=== PATIENT | female | born 1970 | race Caucasian/White ===

== ENCOUNTER 2023-12-26 14:06 | Emergency (ER) | payer OTHER ==
[2023-12-26 16:04] LABS: Specific Gravity 1.012 (1.005-1.030); Urine Bilirubin NEGATIVE (Negative); Urine Blood Negative (Negative); Urine Clarity Clear (Clear); Urine Color Yellow (Yellow); Urine Glucose NEGATIVE (Negative); Urine Ketones NEGATIVE (Negative); Urine Microscopic Reflex YN NO UMIC; Urine Nitrite NEGATIVE (Negative); Urine Protein NEGATIVE (Negative); Urine Urobilinogen Normal (Normal); Urine pH 6.5 (5.0-7.0)
[2023-12-26 16:08] LABS: Absolute Eosinophils 0.1 K/uL (0-0.5); Absolute Lymphocytes (CBC) 2.2 K/uL (0.7-4.9); Absolute Monocytes 0.6 K/uL (0.1-1.3); Absolute Neutrophil 3.9 K/uL (1.8-8.0); Basophils % 0.6 % (0-1.3); Hematocrit 40.6 % (36.0-45.0); Hemoglobin 13.7 g/dL (12.0-15.0); Lymphocytes % 32.8 % (15.3-44.8); MCH 31.5 pg (27.0-35.0); MCHC 33.8 g/dL (32.0-36.0); MCV 93.1 fL (80-100); MPV 6.3 fL (7.6-11.3); Monocytes % 8.1 % (3.3-12.3); Neutrophils % 56.5 % (41.7-73.7); Nucleated Red Blood Cells % 0.1 % (0-0); Platelets 239 thou/uL (152-406); RBC Red Blood Cell Count 4.36 M/uL (3.86-4.86)
[2023-12-26 16:25] LABS: Albumin 4.1 g/dL (3.4-5.0); Albumin/Globulin Ratio 1.1 (1.1-1.8); Anion Gap 5.6 mEq/L (5.0-15.0); Bilirubin Total 0.4 mg/dL (0.2-1.0); Globulin 3.7 g/dL (2.3-3.5); Potassium 3.6 mEq/L (3.5-5.1); Protein, Total 7.8 g/dL (6.4-8.2)
--- NOTE | 2023-12-26 18:10 | RAD REPORT ---
EXAM DESCRIPTION: CT - Abdomen Pelvis W Contrast - 12/26/2023 5:29 pm CLINICAL HISTORY: ABD PAIN COMPARISON: No comparisons TECHNIQUE: Thin cut axial CT imaging of the abdomen and pelvis was performed following intravenous a dministration of iodinated contrast. Multiplanar reformats were generated and reviewed. All CT scans are performed using dose optimization technique as appropriate and may include automated exposure control or mA/KV adjustment according to patient size. FINDINGS: No suspicious findings in the lung bases. The liver demonstrates numerous subcentimeter well-circumscribed hypoattenuating lesions, suggestive of benign cysts, but not well characterized. Spleen, adrenal glands, and pancreas show no suspicious findings. Gallbladder and biliary tree are also without suspicious finding. Symmetric renal function is seen with no hydronephrosis or suspicious renal mass. No dilated bowel loops or bowel wall thickening. Appendix is unremarkable. No free air, free fluid or fluid collections. Nonspecific mild fat stranding along the mesenteric root. No hernia, mass or bulk y lymphadenopathy. Status post hysterectomy. Ovoid pelvic 2 cm calcified focus near the cough, sugges ting a small omental infarct. The urinary bladder is without significant finding. No suspicious bony findings. IMPRESSION: No acute intra-abdominal process. Incidental findings as above, including nonspecific mild fat stranding along the mesenteric root, cou ld be idiopathic, but may relate to a nonspecific infectious or inflammatory process in the abdomen.
--- NOTE | 2023-12-26 18:22 | EDPHYS ---
Physician Documentation [facility] Name: Maggie Bailey Age: 53 yrs Sex: Female : 1970 Arrival Date: 12/26/2023 Time: 14:06 Bed 17 Private MD: ED Physician Roman Allison HPI: 12/25 16:27 This 53 yrs old Female presents to ER via Ambulatory with complaints of Abdominal Pain. ms3 16:27 53-year-old female with past medical history of hyperlipidemia, umbilical hernia ms3 presents to the emergency department for left upper quadrant and left lower quadrant abdominal pain that has been ongoing for 3 weeks. Patient rates the pain a 2/10. Patient denies urinary symptoms, fevers, chills, nausea, vomiting, diarrhea.. Historical: - Allergies: 14:24 No Known Allergies; cm10 - Home Meds: 14:24 rosuvastatin oral [Active]; cm10 - PMHx: 14:24 Hypercholesterolemia; Umbilical hernia; cm10 - PSHx: 14:24 section; Total abdominal hysterectomy; cm10 - Immunization history:: Adult Immunizations up to date. - Infectious Disease History:: Denies. - Social history:: Smoking status: Patient denies any tobacco usage or history of. ROS: 16:27 Constitutional: Negative for fever, and chills. Cardiovascular: Negative for chest ms3 pain, and palpitations. Respiratory: Negative for shortness of breath, cough, wheezing, and pleuritic chest pain, 16:27 MS/Extremity: Negative for injury and deformity, Skin: Negative for injury, rash, and discoloration, 16:27 Abdomen/GI: Positive for abdominal pain, Exam: 16:27 Constitutional: This is a well developed, well nourished patient who is awake, alert, ms3 and in no acute distress. Head/Face: Normocephalic, atraumatic. Chest/axilla: Normal chest wall appearance and motion. Nontender with no deformity. Cardiovascular: Regular rate and rhythm with a normal S1 and S2. No gallops, murmurs, or rubs. Normal PMI, no JVD. No pulse deficits. Respiratory: Lungs have equal breath sounds bilaterally, clear to auscultation and percussion. No rales, rhonchi or wheezes noted. No increased work of breathing, no retractions or nasal flaring. 16:27 Abdomen/GI: Inspection: abdomen appears normal, Bowel sounds: normal, Palpation: mild abdominal tenderness, in the left upper quadrant and left lower quadrant, Vital Signs: 14:22 BP 129 / 75; Pulse 82; Resp 16; Temp 97.8; Pulse Ox 96% on R/A; Weight 90.72 kg; Height cm10 5 ft. 5 in. ; Pain 2/10; 19:07 BP 138 / 93; Pulse 63; Resp 17; Pulse Ox 100% ; jl7 14:22 Body Mass Index 33.28 (90.72 kg, 165.1 cm) cm10 14:22 Pain Scale: Adult cm10 MDM: 14:32 Patient medically screened. ms3 16:27 Differential diagnosis: bowel obstruction, diverticulitis, non-specific abd pain. ms3 17:53 Transition of care: After a detail discussion of the patient's case, care is ms3 transferred to Roman Allison MD. 12/25 14:33 Order name: CBC with Diff; Complete Time: 16:28 ms3 12/25 14:33 Order name: CMP; Complete Time: 16:28 ms3 12/25 14:33 Order name: Urinalysis w/ reflexes; Complete Time: 16:28 ms3 12/25 14:33 Order name: CT Abd/Pelvis - IV Contrast Only; Complete Time: 18:19 ms3 12/25 14:33 Order name: IV Saline Lock; Complete Time: 15:56 ms3 12/25 14:33 Order name: Labs collected and sent; Complete Time: 15:56 ms3 Administered Medications: 18:50 Drug: metroNIDAZOLE PO 500 mg PO once Route: PO; jl7 19:24 Follow up: Response: Medication administered at discharge. jl7 18:51 Drug: Ciprofloxacin PO 500 mg PO once Route: PO; jl7 19:24 Follow up: Response: Medication administered at discharge. jl7 19:07 Not Given (Other Intervention Used): ns 0.9% 1000 ml IV at 1 bolus Per protocol; 1000 jl7 mL bolus Disposition Summary: 12/26/23 18:22 Discharge Ordered Notes: Location: Home grace Problem: new grace Symptoms: have improved grace Condition: Stable grace Diagnosis - Abdominal pain, unspecified - NON SPECIFIC FAT STRANDING , ROOT OF MESENTARY, grace NONSPECIFIF Followup: grace - With: Private Physician - When: 2 - 3 days - Reason: Recheck today's complaints, Continuance of care, Re-evaluation by your physician Followup: grace - With: Rambo Ambrocio MD - When: 2 - 3 days - Reason: Recheck today's complaints, Continuance of care, Re-evaluation by your physician Discharge Instructions: - Discharge Summary Sheet [facility] - Abdominal Pain, Adult [facility] Forms: - Medication Reconciliation Form [facility] - Antibiotic Education [facility] - Prescription Opioid Use [facility] - Patient Portal Instructions [facility] - Leadership Thank You Letter [facility] Prescriptions: - ondansetron 4 mg Oral Tablet,disintegrating - take 1 tablet ORAL route every 8 hours for 5 days PRN NAUSEA; 20 tablet; [facility] Refills: 0, Product Selection Permitted - Flagyl 500 mg Oral Tablet - take 1 tablet ORAL route every 8 hours for 10 days; 30 tablet; Refills: 0, [facility] Product Selection Permitted - Cipro 500 mg Oral Tablet - take 1 tablet ORAL route every 12 hours for 7 days; 14 tablet; Refills: 0, [facility] Product Selection Permitted - dicyclomine 20 mg Oral tablet - take 1 tablet ORAL route 3 times per day; 21 tablet; Refills: 0, Product [facility] Selection Permitted Signatures: Dispatcher [employer] Roman Vogel MD MD cha Leal, Jahala, RN RN jl7 Narciso Noel DO DO ms3 Laila Castro, RN RN cm10
--- NOTE | 2023-12-26 18:22 | ER ---
Nurse's Notes [facility] Name: Maggie Bailey Age: 53 yrs Sex: Female : 1970 Arrival Date: 12/26/2023 Time: 14:06 Bed 17 Private MD: Diagnosis: Abdominal pain, unspecified-NON SPECIFIC FAT STRANDING , ROOT OF MESENTARY, NONSPECIFIF Presentation: 12/25 14:22 Chief complaint: Patient states: Left sided abdominal pain onset 3 weeks ago. No nausea cm10 vomiting or diarrhea. Was sent to the ED by PCP for CT scan. Coronavirus screen: Client denies travel out of the [place] in the last 14 days. At this time, the client does not indicate any symptoms associated with coronavirus-19. Ebola Screen: Patient denies travel to an Ebola-affected area in the 21 days before illness onset. No symptoms or risks identified at this time. Initial Sepsis Screen: Does the patient meet any 2 criteria? No. Patient's initial sepsis screen is negative. Does the patient have a suspected source of infection? No. Patient's initial sepsis screen is negative. Risk Assessment: Do you want to hurt yourself or someone else? Patient reports no desire to harm self or others. Onset of symptoms was December 26, 2023. 14:22 Method Of Arrival: Ambulatory cm10 14:22 Acuity: MACK 3 cm10 Triage Assessment: 14:25 General: Appears in no apparent distress. comfortable, Behavior is calm, cooperative. cm10 Neuro: No deficits noted. Level of Consciousness is awake, alert, obeys commands, Oriented to person, place, time, situation, Appropriate for age. Respiratory: No deficits noted. Airway is patent Respiratory effort is even, unlabored, Respiratory pattern is regular, symmetrical. Historical: - Allergies: 14:24 No Known Allergies; cm10 - Home Meds: 14:24 rosuvastatin oral [Active]; cm10 - PMHx: 14:24 Hypercholesterolemia; Umbilical hernia; cm10 - PSHx: 14:24 section; Total abdominal hysterectomy; cm10 - Immunization history:: Adult Immunizations up to date. - Infectious Disease History:: Denies. - Social history:: Smoking status: Patient denies any tobacco usage or history of. Screenin:00 [facility] ED Fall Risk Assessment (Adult) History of falling in the last 3 months, jl7 including since admission No falls in past 3 months (0 pts) Confusion or Disorientation No (0 pts) Intoxicated or Sedated No (0 pts) Impaired Gait No (0 pts) Mobility Assist Device Used No (0 pt) Altered Elimination No (0 pt) Score/Fall Risk Level 0 - 2 = Low Risk Oriented to surroundings, Maintained a safe environment. Abuse screen: Denies threats or abuse. Denies injuries from another. Nutritional screening: No deficits noted. Tuberculosis screening: No symptoms or risk factors identified. Assessment: 17:30 General: Appears in no apparent distress. uncomfortable, Behavior is calm, cooperative, jl7 appropriate for age. Pain: Complains of pain in left lower quadrant and left upper quadrant Pain currently is 2 out of 10 on a pain scale. Neuro: Level of Consciousness is awake, alert, obeys commands, Oriented to person, place, time, situation. Cardiovascular: Patient's skin is warm and dry. Respiratory: Airway is patent Respiratory effort is even, unlabored, Respiratory pattern is regular, symmetrical. GI: Abdomen is non-distended. Derm: Skin is pink, warm \T\ dry. 18:52 Reassessment: Dr. Allison at bedside discussing results and POC. jl7 Vital Signs: 14:22 BP 129 / 75; Pulse 82; Resp 16; Temp 97.8; Pulse Ox 96% on R/A; Weight 90.72 kg; Height cm10 5 ft. 5 in. ; Pain 2/10; 19:07 BP 138 / 93; Pulse 63; Resp 17; Pulse Ox 100% ; jl7 14:22 Body Mass Index 33.28 (90.72 kg, 165.1 cm) cm10 14:22 Pain Scale: Adult cm10 ED Course: 14:10 Patient arrived in ED. mr 14:17 Narciso Noel DO is Attending Physician. ms3 14:24 Triage completed. cm10 14:25 Arm band placed on Patient placed in waiting room. cm10 15:56 Initial lab(s) drawn, by me, sent to lab. Inserted saline lock: 20 gauge in left zm antecubital area, using aseptic technique. Blood collected. Flushed with 10 mL NS. 15:56 Urine collected: clean catch specimen, clear, yon colored. zm 15:56 CBC with Diff Sent. zm 15:56 CMP Sent. zm 15:56 Urinalysis w/ reflexes Sent. 17:00 Salazar Nava, RN is Primary Nurse. jl7 17:30 Provided Education on: use of call spivey. jl7 17:30 Patient has correct armband on for positive identification. jl7 17:31 CT Abd/Pelvis - IV Contrast Only In Process Unspecified. EDMS 17:53 Attending Physician role handed off by Narciso Noel DO ms3 17:53 Roman Allison MD is Attending Physician. ms3 18:20 Rambo Ambrocio MD is Referral Physician. [facility] 19:07 No provider procedures requiring assistance completed. IV discontinued, intact, jl7 bleeding controlled, No redness/swelling at site. Pressure dressing applied. Administered Medications: 18:50 Drug: metroNIDAZOLE PO 500 mg PO once Route: PO; jl7 19:24 Follow up: Response: Medication administered at discharge. jl7 18:51 Drug: Ciprofloxacin PO 500 mg PO once Route: PO; jl7 19:24 Follow up: Response: Medication administered at discharge. jl7 19:07 Not Given (Other Intervention Used): ns 0.9% 1000 ml IV at 1 bolus Per protocol; 1000 jl7 mL bolus Medication: 19:27 VIS not applicable for this client. jl7 Outcome: 18:22 Discharge ordered by . [facility] 19:00 Discharged to home ambulatory, jl7 19:00 Condition: stable 19:00 Discharge instructions given to patient, Instructed on discharge instructions, follow up and referral plans. medication usage, Demonstrated understanding of instructions, follow-up care, medications, Prescriptions given X 4, 19:07 Patient left the ED. jl7 Signatures: Dispatcher [employer] ED[facility] Roman Allison MD MD cha Rivera, Mary, Reg Reg mr Salazar Nava, RN RN jl7 Narciso Noel DO DO ms3 Romina Castro Clarissa, RN RN cm10 Corrections: (The following items were deleted from the chart) 19:25 19:07 BP 138 / 93; Pulse 63bpm; Resp 17bpm; Pulse Ox 100%; Temp 15F; jl7 jl7
[2023-12-26] MEDS ORDERED: metroNIDAZOLE 500 MG TABLET ONE (18:44)
[2023-12-26] MEDS ORDERED: CIPROFLOXACIN HCL 500 MG TAB ONE (18:45)
[2023-12-26 20:12] VITALS: BP 138/93; TEMP 15; O2SAT 100
== END 2023-12-26 19:07 | disposition home or self-care (01) ==
LOC: ER 14:06
DX: R10.32 Left lower quadrant pain (principal); R10.12 Left upper quadrant pain; K63.89 Other specified diseases of intestine
CPT/HCPCS: 85025; 36415; 81003; 80053; 74177; 99284; Q9967